=== PATIENT | female | born 1955 | race Asian ===

== ENCOUNTER 2024-01-24 09:49 | Emergency (ER) | payer BC, SELFPAY ==
[~2024-01-24] VITALS: Ht 157.5 cm; Wt 68.0 kg
[2024-01-24 09:52] VITALS: BP_SYST 131; PULSE 85; RESP 18; TEMP 98.3; O2SAT 98
[2024-01-24] MEDS: IPRATROPIUM/ALBUTEROL SULFATE 3 ML AMPUL.NEB (DUONEB) INH ONE (10:13)
[2024-01-24 10:41] LABS: INFLUENZA TYPE A Negative (NEGATIVE); INFLUENZA TYPE B NEGATIVE (NEGATIVE)
[2024-01-24 10:44] LABS: BASOPHILS # (AUTO) 0.1 K/uL (0.0-0.2); BASOPHILS % (AUTO) 0.6 % (0.0-2.0); EOSINOPHILS % (AUTO) 0.5 % (0.0-4.0); HEMATOCRIT 40.8 % (36-48); HEMOGLOBIN 13.9 g/dL (12.0-16.0); LYMPHOCYTES # (AUTO) 1.8 K/uL (1.0-5.5); MEAN CORPUSCULAR HEMOGLOBIN 30 pg (27-31); MEAN CORPUSCULAR HGB CONC 34 % (32-36); MEAN CORPUSCULAR VOLUME 89 fL (79.0-98.0); MONOCYTES # (AUTO) 1.6 K/uL (0.0-1.0); MONOCYTES % (AUTO) 17.1 % (1.7-9.3); NEUTROPHILS # (AUTO) 5.9 K/uL (1.8-7.7); NEUTROPHILS % (AUTO) 62.8 % (40.0-70.0); PLATELET COUNT (AUTO) 256 K/uL (130-430); RED CELL DISTRIBUTION WIDTH 13.3 % (9.0-15.0); WHITE BLOOD COUNT (AUTO) 9.4 K/uL (4.8-10.8)
[2024-01-24] MEDS: NACL 0.9% 1,000 ML IV ONE (10:49)
[2024-01-24] MEDS: ONDANSETRON HCL 4 MG/2 ML VIAL IVP ONE (10:50)
[2024-01-24] MEDS: predniSONE 20 MG TABLET PO ONE (10:50)
[2024-01-24] MEDS: ASPIRIN 81 MG TAB.CHEW PO ONE (10:50)
[2024-01-24 11:03] LABS: ANION GAP 14 (5-15); CALCIUM 9.3 mg/dL (8.4-11.0); CARBON DIOXIDE 24 mmol/L (23-29); CHLORIDE 102 mmol/L (98-107); CREATININE 1.05 mg/dL (0.55-1.30); GLUCOSE 87 mg/dL (74-106); POTASSIUM 3.4 mmol/L (3.5-5.1); SODIUM SERUM 140 mmol/L (136-145); UREA NITROGEN, BLOOD 15 mg/dL (8-21)
[2024-01-24 11:07] LABS: GFR AFRICAN AMERICAN 67 mL/min (>90); GFR NON AFRICAN-AMERICAN 55 mL/min (>90)
[2024-01-24] MEDS ORDERED: ALBMDI INH (11:16)
[2024-01-24] MEDS ORDERED: GUAI100S14 PO (11:50)
[2024-01-24 12:12] VITALS: BP_SYST 133; PULSE 89; RESP 16; TEMP 98.2; O2SAT 98
== END 2024-01-24 12:11 | disposition home or self-care (01) ==
LOC: SED 09:49
DX: U07.1 COVID-19 (principal); J06.9 Acute upper respiratory infection, unspecified; R06.02 Shortness of breath; B97.89 Other viral agents as the cause of diseases classified elsewhere; I10 Essential (primary) hypertension; Z79.52 Long term (current) use of systemic steroids
CPT/HCPCS: 99285; 96374; 71045; 96361; 87426; 80048; 83880; 85025; 84484; 36415; 93005; 94640; 87804 ×2; J7512; J2405; J7030